=== PATIENT | female | born 2005 | race Hispanic/Latino ===

== ENCOUNTER 2024-03-26 09:15 | Emergency (ER) | payer SELFPAY ==
[2024-03-26 09:29] VITALS: BP 100/60
--- NOTE | 2024-03-26 10:04 | PHANOTE ---
03/26/2024, med rec tech, spoke to pt. to obtain her med. history; pt. gets her meds. from [facility]; was not able to confirm with another source.
[2024-03-26 10:05] VITALS: BMI 30.1
[2024-03-26 10:14] LABS: % Basophils 0.8 % (0-2); % Eosinophils 3.3 % (0-6); % Immature Granulocytes 0.3 % (0-0.5); % Lymphocytes 22.3 % (20.5-51.1); % Monocytes 8.8 % (1.7-9.3); % Neutrophils 64.5 % (42.2-75.2); Absolute Basophils 0.1 10^3/uL (0-0.2); Absolute Eosinophils 0.3 10^3/uL (0-0.7); Absolute Lymphocytes 2.3 10^3/uL (1.2-3.4); Absolute Monocytes 0.9 10^3/uL (0.1-0.6); Absolute Neutrophils 6.6 10^3/uL (1.4-6.5); Hematocrit 37.6 % (37.0-47.0); Hemoglobin 12.7 g/dL (12.0-16.0); Mean Corp Hgb Conc. 33.8 g/dL (33.0-37.0); Mean Corpuscular Hgb 28.3 pg (27.0-31.0); Mean Corpuscular Volume 83.7 fL (81.0-99.0); Mean Platelet Volume 10.1 fL (7.4-10.4); Nucleated Red Blood Cells % 0 %; Platelet Count 302 10^3/uL (130-400); Red Blood Cell Count 4.49 10^6/uL (4.20-5.40); Red Cell Dist. Width 13.2 % (11.5-14.5); White Blood Cell Count 10.3 10^3/uL (4.8-10.8)
[2024-03-26 10:26] LABS: HCG, Serum Qualitative Screen Negative
[2024-03-26 10:27] LABS: ALT (SGPT) 19 U/L (0-35); AST (SGOT) 27 U/L (14-36); Albumin 4.4 g/dl (3.5-5.0); Alkaline Phosphatase 90 U/L (38-126); Blood Urea Nitrogen 17 mg/dl (7-17); Calcium 9.1 mg/dl (8.4-10.2); Carbon Dioxide 22 mmol/L (22-30); Chloride 106 mmol/L (98-107); Estimated Creatinine Clearance > 125 ml/min; Glucose 86 mg/dl (70-99); Potassium 4.2 mmol/L (3.5-5.1); Sodium 138 mmol/L (135-145); Total Bilirubin 0.7 mg/dl (0.2-1.3); Total Protein 7.3 g/dl (6.3-8.2); eGFR > 60.00
--- NOTE | 2024-03-26 10:40 | ED.GENMED ---
History of Present Illness
General
Chief Complaint: Rectal Bleeding
Source: patient
Time Seen by Provider: 03/26/24 10:02
History of Present Illness
History of Present Illness:
18-year-old female with no significant past medical history presenting to the emergency department for evaluation after she noticed blood on the toilet paper twice this morning, the first episode occurring only after urinating and a second episode
after having a bowel movement. Patient reports there was no pain with this. She notes that there were a couple drops of blood in the toilet following her bowel meant. She denies any fevers or infectious symptoms, recent antibiotics or recent
travel, no known sick contacts. Family history was negative for ulcerative colitis/Crohn's disease and no history of colorectal cancers. Patient has no other concerns and is not on any anticoagulants. She denies any alcohol use or frequent NSAID
use.
Past History
Past History
ED Past Medical History: Psychiatric
ED Past Surgical History: None
Social History
Tobacco: Non-smoker
Alcohol: None
Drug: None
Personal: Single
Living: with family
Employment: Student
Review of Systems
Review of Systems
All Other Systems: ROS reviewed and negative except as documented in HPI and ROS
Phy Exam
Physical Exam
Physical Exam:
GENERAL: Alert , in no apparent distress
EYE: clear conjunctiva b/l
HEAD: NCAT
ENT: mmm.
CARDIAC: Regular rate and rhythm .
LUNGS: Clear breath sounds bilaterally, no acute respiratory distress, no wheezes/rales/rhonchi
ABDOMEN: Soft, without focal tenderness, no r/g, no cvat
Rectal exam: Chaperoned by ED RN Bre: No external hemorrhoids appreciated, no stool within rectal vault and no blood on glove or Hemoccult card
NEUROLOGICAL: Alert and oriented
SKIN: Warm and dry, skin intact.
MUSCULOSKELETAL: well perfused.
PSYCH: Normal and appropriate interaction.
Scores
Heart Failure Risk
Heart Failure Risk Score: Not Applicable
Heart Score for Chest Pain Patients
STEMI patient?: Not applicable
Withdrawal Assessment of Alcohol
Withdrawal Assessment Completed?: Not applicable
Course
Orders/Labs/Results
Orders:
Orders
03/26/24 10:04
Test Result ONCE
03/26/24 10:06
Complete Blood Count/With Diff Urgent
Comprehensive Metabolic Panel Urgent
HCG, Serum Qualitative Screen Urgent
Abnormal Lab Results
03/26/24
10:06
Absolute Neuts (auto) 6.6 H 10^3/uL
(1.4-6.5)
Absolute Monos (auto) 0.9 H 10^3/uL
(0.1-0.6)
Creatinine 0.5 L mg/dL
(0.6-1.0)
03/26/24 10:06
03/26/24 10:06
Vital Signs
Initial and Last Documented VS:
Initial Vital Signs
Temp Pulse Resp BP Pulse Ox
98.0 F 81 16 100/60 98
03/26/24 09:29 03/26/24 09:29 03/26/24 09:29 03/26/24 09:29 03/26/24 09:29
Last Documented Vital Signs
Temp Pulse Resp BP Pulse Ox
98.0 F 81 16 100/60 98
03/26/24 09:29 03/26/24 09:29 03/26/24 09:29 03/26/24 09:29 03/26/24 09:29
MDM/Problems Addressed
Differential Diagnosis Includes:
Internal/external hemorrhoid, no signs to suggest infectious diarrhea, no risk factors for upper GI bleeding
MDM/Problems Addressed:
18-year-old female presenting to the emergency department for evaluation after she noticed blood on toilet paper when wiping twice this morning, once after only urinating and the other after bowel movement. Symptoms seem to be most suggestive of
hemorrhoidal bleeding. Patient's exam is reassuring without any focal findings. Labs have been initiated by triage nursing and patient has a normal hemoglobin and is hemodynamically. Discussed management of hemorrhoids and will provide with a
prescription for Anusol. Patient encouraged on close outpatient follow-up with primary care provider and aware of return precautions to the emergency department
*Pulse Oximetry
Patient hypoxic: no
*Critical Care Note
Total Time (30-74mins, 75-104mins- exclusive of procedures): Not Applicable
ED Attending Note
-
Portions of this chart may have been created with voice recognition software.� Occasional wrong word or��sound alike� substitutions may have occurred due to the inherent limitations of voice recognition software.
Discharge Plan
Departure
Patient Disposition: Home (Routine Discharge)
Date of Disposition: 03/26/24
Time of Disposition: 10:40
Patient with high blood pressure during this ER visit?: No
Discharge Problem:
Bleeding hemorrhoid
Instructions: Hemorrhoids (DC)
Prescriptions:
New
hydrocortisone acetate [Anusol-HC] 25 mg suppository
25 mg DC DAILY Qty: 24 0RF
No Action
sertraline 50 mg Tablet
50 mg PO DAILY
Patient Comments:
03/26/2024, pt. gets this med. from [facility].
Sulpiride 200 mg tablet
200 mg PO HS
Patient Comments:
03/26/2024, pt. gets this med. from [facility].
Referrals:
NONE,* [Active] -
Interventions
Interventions:
*Risk Screen - Suicide Last Done: 03/26/24 10:05
*General Assessment Last Done: 03/26/24 10:05
*Neglect/Abuse Screening Last Done: 03/26/24 10:05
*ED COVID-19 Vaccine History Last Done: 03/26/24 09:29
SK-Whhcfz-Cvewbwpmjs Assessment Last Done: 03/26/24 10:31
ED- Cardiac Assessment Last Done: 03/26/24 10:10
ED- Pulmonary Assessment Last Done: 03/26/24 10:10
Discharge Date and Time
Print Language: IRISH
== END 2024-03-26 11:10 | disposition home or self-care (01) ==
LOC: EMR 09:15
PROVIDERS: EMERGENCY PHYSICIAN Emergency Medicine; FAMILY PHYSICIAN Family Medicine
DX: K64.9 Unspecified hemorrhoids (principal)
CPT/HCPCS: 99283; 80053; 84703; 85025

== ENCOUNTER → 2024-12-07 08:34 | Outpatient (REF) | payer OTHER, SELFPAY ==
[2024-12-07 10:03] LABS: Blood Urea Nitrogen 15 mg/dl (7-17); Calcium 9.5 mg/dl (8.4-10.2); Carbon Dioxide 23 mmol/L (22-30); Chloride 104 mmol/L (98-107); Glucose 94 mg/dl (70-99); Potassium 3.9 mmol/L (3.5-5.1); Sodium 137 mmol/L (135-145); eGFR > 60.00
== END ==
LOC: CLINIC 08:34
PROVIDERS: ATTENDING PHYSICIAN Surgery
DX: R10.30 Lower abdominal pain, unspecified (principal)
CPT/HCPCS: 36415; 74177; 80048; 83993; 86140; 87045; 87046; 87324; 87427; 87449; Q9967

== ENCOUNTER 2025-01-08 06:28 | Day surgery (SDC) | payer OTHER, SELFPAY | END 2025-01-08 12:09 | disposition home or self-care (01) | LOC: GI 06:28 | PROVIDERS: ATTENDING PHYSICIAN Surgery | DX: K62.5 Hemorrhage of anus and rectum (principal); K64.8 Other hemorrhoids | CPT/HCPCS: 45380; 88305 ==

== ENCOUNTER → 2025-06-25 10:35 | Outpatient (REF) | payer OTHER, SELFPAY ==
[2025-06-25 12:17] LABS: Hematocrit 41.0 % (37.0-47.0); Hemoglobin 13.7 g/dL (12.0-16.0); Mean Corp Hgb Conc. 33.4 g/dL (33.0-37.0); Mean Corpuscular Volume 84.5 fL (81.0-99.0); Platelet Count 372 10^3/uL (130-400); Red Cell Dist. Width 13.2 % (11.5-14.5)
[2025-06-25 12:47] LABS: ALT (SGPT) 19 U/L (0-35); AST (SGOT) 22 U/L (14-36); Albumin 4.7 g/dl (3.5-5.0); Alkaline Phosphatase 105 U/L (38-126); Blood Urea Nitrogen 12 mg/dl (7-17); Calcium 9.6 mg/dl (8.4-10.2); Carbon Dioxide 23 mmol/L (22-30); Chloride 108 mmol/L (98-107); Glucose 91 mg/dl (70-99); Potassium 4.5 mmol/L (3.5-5.1); Sodium 140 mmol/L (135-145); Total Protein 7.8 g/dl (6.3-8.2); eGFR > 60.00
[2025-06-25 13:01] LABS: Vitamin D, 25-OH*** 24.2 ng/mL (30-80)
== END ==
LOC: CLINIC 10:35
PROVIDERS: ATTENDING PHYSICIAN Nurse Practitioner Adult Health
DX: Z00.00 Encounter for general adult medical examination without abnormal findings (principal); E55.9 Vitamin D deficiency, unspecified
CPT/HCPCS: 36415; 80053; 82306; 84443; 85027